=== PATIENT | female | born 1980 | race Caucasian/White ===

== ENCOUNTER 2016-12-02 14:17 | Emergency (ER) | payer OTHER ==
[~2016-12-02] VITALS: Ht 149.9 cm; Wt 69.3 kg
[~2016-12-02 14:17] MED LIST: DESYREL100 MG PO
[2016-12-02 16:01] VITALS: BP 142/105
== END 2016-12-02 16:11 | disposition home or self-care (01) ==
LOC: EME 14:17
DX: S93.402A Sprain of unspecified ligament of left ankle, initial encounter (principal); W10.9XXA Fall (on) (from) unspecified stairs and steps, initial encounter; Y92.009 Unspecified place in unspecified non-institutional (private) residence as the place of occurrence of the external cause; Y93.01 Activity, walking, marching and hiking; F17.200 Nicotine dependence, unspecified, uncomplicated
CPT/HCPCS: 73610; 99281; 99284

== ENCOUNTER 2016-12-30 00:57 | Inpatient (IN) | payer OTHER ==
[~2016-12-30] VITALS: Ht 149.9 cm; Wt 69.1 kg
[2016-12-30 01:48] LABS: HEMATOCRIT 40.2 % (36.0-46.0); MCH 30.5 PG (29.0-34.0); MCHC 33.8 G/DL (30.0-36.0); MCV 90.1 FL (83-99); MEAN PLAT.VOLUME 9.5 uM^3 (9.5-12.4); PLATELET COUNT 277 K/uL (156-360); RBC DIS.WIDTH-CV 14.6 % (11.8-14.6); RED BLOOD COUNT 4.46 M/uL (3.80-5.20); WHITE BLOOD COUNT 9.3 K/uL (4.1-10.2)
[2016-12-30 01:51] LABS: ADD MIUA? YES; BILIRUBIN NEGATIVE; BLOOD SMALL; COLOR COLORLESS ((YELLOW)); GLUCOSE (STRIP) NEGATIVE; KETONES NEGATIVE; LEUKOCYTES NEGATIVE; NITRITE NEGATIVE; PROTEIN (STRIP) NEGATIVE; SPECIFIC GRAVITY 1.003 (1.000-1.030); UROBILINOGEN 0.2 MG/DL (0.2-1.0)
[2016-12-30 01:56] LABS: BACTERIA NONE SEEN /HPF; EPITHELIAL CELLS RARE /HPF; MUCUS NONE SEEN /LPF; RED BLOOD CELLS 0-5 /HPF (0-5); UCUL ADDED? NO; WHITE BLOOD CELLS 0-5 /HPF (0-5)
[2016-12-30 01:57] LABS: AMPHETAMINE NEGATIVE (500 ng/mL); BARBITURATES NEGATIVE (200 ng/mL); BENZODIAZEPINES NEGATIVE (150 ng/mL); COCAINE NEGATIVE (150 ng/mL); INTERNAL CONTROLS VALID? YES; METHADONE NEGATIVE (200 ng/mL); METHAMPHETAMINE NEGATIVE (500 ng/mL); OPIATES (MORPHINE) NEGATIVE (100 ng/mL); OXYCODONE NEGATIVE (100 ng/mL); PHENCYCLIDINE NEGATIVE (25 ng/mL); PROPOXYPHENE NEGATIVE (300 ng/mL); THC CANNABINOIDS NEGATIVE (50 ng/mL); TRICYCLIC ANTIDEPRESSANTS NEGATIVE (300 ng/mL)
[2016-12-30 02:02] LABS: CHLORIDE 108 mEq/L (99-109); POTASSIUM 3.6 mEq/L (3.7-5.4); SODIUM 141 mEq/L (136-147)
[2016-12-30 02:04] LABS: GLUCOSE 101 mg/dL (70-99)
[2016-12-30 02:05] LABS: ANION GAP 13 MEQ/L (2-14)
[2016-12-30 02:07] LABS: SERUM ETHYL ALCOHOL 307 mg/dL
[2016-12-30 02:08] LABS: GFR ESTIMATE (CALCULATED) > 59 mL/min/
[2016-12-30 02:09] LABS: UREA NITROGEN (BUN) 11 mg/dL (9-23)
[2016-12-30 02:11] LABS: SALICYLATE < 5.0 MG/DL (15-30)
[2016-12-30 02:17] LABS: QUANTITATIVE HCG < 4.0 MIU/ML
[2016-12-30 13:11] VITALS: BP 137/82
[2016-12-30 15:32] VITALS: BP 138/90
[2016-12-31 07:51] VITALS: BP 128/84
[2016-12-31 15:40] VITALS: BP 129/84
[2017-01-01 07:22] VITALS: BP 114/67
[2017-01-01] MEDS ORDERED: FLUOXETINE HCL10 MG PO (10:42)
== END 2017-01-01 13:16 | disposition home or self-care (01) | DRG 885 ==
LOC: EME 00:57 → EDOF 11:18 → 1WEST 11:18
PROVIDERS: Emergency Medicine
DX: F33.1 Major depressive disorder, recurrent, moderate (principal); F10.229 Alcohol dependence with intoxication, unspecified; R45.851 Suicidal ideations; Y90.8 Blood alcohol level of 240 mg/100 ml or more; F17.200 Nicotine dependence, unspecified, uncomplicated; Z87.820 Personal history of traumatic brain injury
CPT/HCPCS: 80048; 81003; 84702; 85027; 90839; 99281; 99285; G0480; Q0177

== ENCOUNTER 2017-07-05 15:25 | Emergency (ER) | payer OTHER ==
[~2017-07-05] VITALS: Ht 149.9 cm; Wt 66.4 kg
[~2017-07-05 15:25] MED LIST changes: +FLUOXETINE HCL10 MG PO
[2017-07-05 16:54] LABS: BASOPHIL (%) 0.8 % (0-1); BASOPHIL COUNT 0.1 K/uL (0-0.1); EOSINOPHIL (%) 0 % (0-5); HEMATOCRIT 39.7 % (36.0-46.0); HEMOGLOBIN 13.6 G/DL (11.9-15.5); IMMATURE GRANULOCYTE (%) 0.3 % (0.0-0.7); LYMPHOCYTE (%) 11.7 % (15-42); LYMPHOCYTE COUNT 0.7 K/uL (1.0-2.8); MCH 31.8 PG (29.0-34.0); MCHC 34.3 G/DL (30.0-36.0); MCV 92.8 FL (83-99); MONOCYTE (%) 19.7 % (3-12); MONOCYTE COUNT 1.2 K/uL (0-0.8); NEUTROPHIL (%) 67.5 % (45-76); NEUTROPHIL COUNT 4.2 K/uL (1.8-6.4); PLATELET COUNT 219 K/uL (156-360); RBC DIS.WIDTH-CV 13.1 % (11.8-14.6); RBC DIS.WIDTH-SD 44.7 % (39-53); RED BLOOD COUNT 4.28 M/uL (3.80-5.20); WHITE BLOOD COUNT 6.2 K/uL (4.1-10.2)
[2017-07-05 17:03] LABS: ALBUMIN 4.6 g/dL (3.2-4.8); CHLORIDE 102 mEq/L (99-109); POTASSIUM 3.8 mEq/L (3.7-5.4); SODIUM 137 mEq/L (136-147)
[2017-07-05 17:04] LABS: MAGNESIUM 1.9 mg/dL (1.3-2.7)
[2017-07-05 17:05] LABS: GLUCOSE 86 mg/dL (70-99)
[2017-07-05 17:06] LABS: TOTAL PROTEIN 8.1 g/dL (6.4-8.3)
[2017-07-05 17:07] LABS: TOTAL BILIRUBIN 0.1 mg/dL (0.0-1.0)
[2017-07-05 17:08] LABS: SERUM ETHYL ALCOHOL 217 mg/dL
[2017-07-05 17:09] LABS: ALKALINE PHOSPHATASE 87 IU/L (3-129); CREATININE 0.7 mg/dL (0.6-1.3); GFR ESTIMATE (CALCULATED) > 59 mL/min/
[2017-07-05 17:10] LABS: UREA NITROGEN (BUN) 4 mg/dL (9-23)
[2017-07-05 17:11] LABS: AST (GOT) 69 IU/L (2-34)
[2017-07-05 17:12] LABS: ALT (GPT) 50 IU/L (3-49)
[2017-07-05 17:13] LABS: LIPASE 14 U/L (1.0-51.0)
[2017-07-05 17:15] LABS: APPEARANCE CLEAR ((CLEAR)); BILIRUBIN NEGATIVE; BLOOD MODERATE; COLOR STRAW ((YELLOW)); GLUCOSE (STRIP) NEGATIVE; KETONES NEGATIVE; LEUKOCYTES NEGATIVE; NITRITE NEGATIVE; PROTEIN (STRIP) NEGATIVE; SPECIFIC GRAVITY 1.003 (1.000-1.030); UROBILINOGEN 0.2 MG/DL (0.2-1.0)
[2017-07-05 17:23] LABS: BACTERIA RARE /HPF; EPITHELIAL CELLS RARE /HPF; MUCUS NONE SEEN /LPF; RED BLOOD CELLS NONE SEEN /HPF (0-5); WHITE BLOOD CELLS 0-5 /HPF (0-5)
[2017-07-05 17:26] LABS: AMPHETAMINE NEGATIVE (500 ng/mL); BARBITURATES NEGATIVE (200 ng/mL); BENZODIAZEPINES NEGATIVE (150 ng/mL); BUPRENORPHINE NEGATIVE (10 ng/mL); COCAINE NEGATIVE (150 ng/mL); METHADONE NEGATIVE (200 ng/mL); METHAMPHETAMINE NEGATIVE (500 ng/mL); OPIATES (MORPHINE) NEGATIVE (100 ng/mL); OXYCODONE NEGATIVE (100 ng/mL); PHENCYCLIDINE NEGATIVE (25 ng/mL); PROPOXYPHENE NEGATIVE (300 ng/mL); THC CANNABINOIDS NEGATIVE (50 ng/mL); TRICYCLIC ANTIDEPRESSANTS NEGATIVE (300 ng/mL)
[2017-07-05 20:13] VITALS: BP 130/80
== END 2017-07-05 20:13 | disposition home or self-care (01) ==
LOC: EME 15:25
PROVIDERS: Emergency Medicine
DX: F10.10 Alcohol abuse, uncomplicated (principal); B34.9 Viral infection, unspecified; Y90.7 Blood alcohol level of 200-239 mg/100 ml; F17.200 Nicotine dependence, unspecified, uncomplicated; Z87.820 Personal history of traumatic brain injury; R56.9 Unspecified convulsions
CPT/HCPCS: 80053; 81003; 82140; 83690; 83735; 85025; 99281; 99284; G0480